=== PATIENT | female | born 1955 | race Asian ===

== ENCOUNTER 2018-09-01 08:25 | Emergency (ER) | payer SELFPAY ==
[~2018-09-01] VITALS: Ht 152.4 cm; Wt 54.4 kg
[2018-09-01 08:25] VITALS: BP_SYST 161
--- NOTE | 2018-09-01 08:25 | NUR ---
[facility]
--- NOTE | 2018-09-01 08:40 | NUR ---
ER Dr. BOWLES at bedside examining patient.
[2018-09-01] MEDS ORDERED: KETOROLAC TROMETHAMINE 30 MG VIAL IVP ONE (08:45)
--- NOTE | 2018-09-01 08:52 | NUR ---
# 20 gauge angiocath placed to RIGHT A/C. Use of aseptic technique. Opsite placed over site. Blood return noted. Flushed with 10 cc of normal saline. No evidence of infiltration noted. Patient tolerated well.
--- NOTE | 2018-09-01 08:56 | NUR ---
PT MEDICATED WITH TORADOL 30 MG IVP FOR BACK PAIN.
--- NOTE | 2018-09-01 09:08 | NUR ---
TAKEN TO CT SCAN DEPT.
--- NOTE | 2018-09-01 09:20 | NUR ---
RETURNED TO ROOM 3.
[2018-09-01] MEDS ORDERED: MORPHINE 2 MG/ML INJ. SYRINGE IVP ONE ×2 (09:45→10:30)
[2018-09-01] MEDS ORDERED: DIPHENHYDRAMINE INJ 50 MG/ML VIAL IVP ONE ×2 (09:45→10:30)
--- NOTE | 2018-09-01 09:50 | NUR ---
MEDICATED PT WITH MORPHINE 2 MG IVP AND BENADRYL 25 MG IVP FOR BACK PAIN.
--- NOTE | 2018-09-01 10:57 | NUR ---
Patient given written and verbal discharge instructions and verbalizes understanding. ER MD DR BOWLES discussed with patient the results and treatment provided. Patient in stable condition. ID arm band removed. IV catheter removed intact and dressing applied, no active bleeding. Rx of motrin, zofran, norco given. Patient educated on pain management and to follow up with PMD. Pain Scale 8-10. Pt medicated with morphine and Benadryl prior to discharge. Opportunity for questions provided and answered. Medication side effect fact sheet provided.
== END 2018-09-01 10:57 | disposition home or self-care (01) ==
LOC: SED 08:25
DX: R10.13 Epigastric pain (principal); M79.605 Pain in left leg; M54.9 Dorsalgia, unspecified; R03.0 Elevated blood-pressure reading, without diagnosis of hypertension; V49.40XA Driver injured in collision with unspecified motor vehicles in traffic accident, initial encounter; Y93.89 Activity, other specified; Y92.410 Unspecified street and highway as the place of occurrence of the external cause; Y99.8 Other external cause status
CPT/HCPCS: 72128; 72131; 96374; 96375; 96376; 99284; J1200; J1885; J2270